=== PATIENT | male | born 1975 ===

== ENCOUNTER 2018-01-14 10:59 | Outpatient (CLI) | payer OTHER ==
[~2018-01-14] VITALS: Ht 182.9 cm; Wt 72.6 kg
[2018-01-14] MEDS ORDERED: FLONASE16 GM NASAL (12:56)
[2018-01-14] MEDS ORDERED: ZYRTEC10 MG PO (12:56)
== END 2018-01-14 11:15 | disposition home or self-care (01) ==
LOC: OFIC 805 10:59
DX: R51 Headache (principal); J31.0 Chronic rhinitis; J34.2 Deviated nasal septum; J34.3 Hypertrophy of nasal turbinates; J32.8 Other chronic sinusitis